=== PATIENT | female | born 1955 | race Caucasian/White ===

== ENCOUNTER 2016-12-22 14:49 | Emergency (ER) | payer OTHER, MEDICARE ==
--- NOTE | ~2016-12-22 | EKG ---
PATIENT: SHANNAN HAAS UNIT #: [id number] Ventricular Rate: 79 BPM Atrial Rate: 79 BPM P-R Interval: 184 ms QRS Duration: 86 ms Q-T Interval: 370 ms QTC Calculation(Bezet): 424 ms P [place]: 33 degrees Calculated R [place]: 4 degrees Calculated T [place]: 60 degrees Diagnosis Line: Normal sinus rhythm Diagnosis Line: Normal ECG Diagnosis Line: No previous ECGs available Diagnosis Line: Confirmed by NICK MATHEW MD ([id number]) on 12/23/2016 Diagnosis Line: 8:05:14 PM INTERPRETING MD: QUINCY TRUJILLO
--- NOTE | ~2016-12-22 | CR72 ---
[facility] A Service of [facility] RADIOLOGY TEXT RESULTS PATIENT: SHANNAN HAAS LOCATION: SED : 51 UNIT #: [id number] AGE: [address]: Kamala Braun MD SEX: F ORDER DR: [id number] [address] [address] [id number] MR#: [id number] Acc #: [id number] NAME: SHANNAN HAAS : 1955 SEX: F STUDY DATE/TIME: 12/22/2016 15:37 UNIT: SED ROOM: STUDY DESCRIPTION: CR Chest Single View Portable Attending Physician: Kamala Braun M.D. Referring Physician: Kamala Braun M.D. Ordering Physician: Kamala Braun M.D. MEDICAL IMAGING REPORT This report is preliminary unless electronic signature is present. EXAM Portable chest HISTORY Shortness of breath for the past 4-5 days. Previous history breast cancer. TECHNIQUE Single view chest was obtained. FINDINGS Bony structures are unremarkable. Vascular clips are seen in the left axilla from previous surgery. The lungs are abnormal. Diffuse bilateral interstitial infiltrates are seen. The infiltrates are most prominent in the left mid-lung field. The appearance is nonspecific. This could reflect chronic interstitial lung disease, acute interstitial pneumonia or pneumonitis, or lymphangitic carcinomatosis in a patient with a history of breast cancer. No pleural fluid is seen and vascular markings are normal. IMPRESSION Nonspecific interstitial infiltrates are seen bilaterally, most prominent in the left mid-lung field. No previous imaging studies are available for comparison. See above differential diagnosis. Dictated by... Bony Ford M.D. THIS IS AN ELECTRONICALLY VERIFIED REPORT Bony Ford M.D. at 12/23/2016 10:03 AM RLF/pcl [facility] A Service of [facility] RADIOLOGY TEXT RESULTS PATIENT: SHANNAN HAAS LOCATION: SED : 53 UNIT #: [id number] AGE: [address]: Kamala Braun MD SEX: F ORDER DR: TD: 12/22/2016 22:53 JOB #: [id number] MEDICAL IMAGING REPORT Page 1 of 1
[2016-12-22] MEDS ORDERED: LISINOPRIL (14:57)
[2016-12-22] MEDS ORDERED: METFORMIN (14:57)
[2016-12-22] MEDS ORDERED: NORVASC (14:57)
[2016-12-22] MEDS ORDERED: PROZAC (14:57)
[2016-12-22] MEDS ORDERED: GLYNASE (14:57)
[2016-12-22 15:33] LABS: BASOPHIL# 0.1 X10e3 (0-0.3); BASOPHIL% 0.7 % (0-2.5); EOSINOPHIL# 0.2 X10e3 (0-0.7); EOSINOPHIL% 2.5 % (0.0-7.0); HEMOGLOBIN 14.9 gm/dL (12.0-16.0); LYMPHOCYTE# 2.1 X10e3 (1.0-3.5); LYMPHOCYTE% 21.7 % (17.0-45.0); MEAN CELL VOLUME 88.9 FL (83-96); MEAN CORPUSCULAR HEMOGLOBIN 30.7 PG (28-34); MEAN CORPUSCULAR HGB CONC 34.5 g/dL (30-36); MEAN PLATELET VOLUME 6.8 FL (6.5-11.5); MONOCYTE# 0.6 X10e3 (0-1.0); NEUTROPHIL# 6.8 X10e3 (1.5-7.1); NEUTROPHIL% 69.1 % (40-75); PLATELET COUNT 279 X10e3 (140-420); RED BLOOD COUNT 4.84 X10e (3.90-5.30); RED CELL DISTRIBUTION WIDTH 13.7 % (11.0-15.5); WHITE BLOOD COUNT 9.8 X10e3 (4.0-10.5)
[2016-12-22 15:34] LABS: POC - CKMB 1.2 ng/mL (0.0-7.9); POC - TROPONIN <0.05 ng/mL (<=0.05)
[2016-12-22 15:38] LABS: DIFF IND NO
[2016-12-22 15:42] LABS: PROTHROMBIN TIME (PATIENT) 11.4 SECONDS (9.5-12.4)
[2016-12-22 15:49] LABS: PARTIAL THROMBOPLASTIN TIME 27.7 SECONDS (25.6-38.1)
[2016-12-22 16:06] LABS: BILIRUBIN, DIRECT 0.2 mg/dL (0.0-0.2); BILIRUBIN,INDIRECT 0.5 mg/dL (0.0-0.9); BILIRUBIN,TOTAL 0.7 mg/dL (0.2-2.0); CALCIUM SERUM 9.6 mg/dL (8.4-10.2); CREATININE SERUM 0.6 mg/dL (0.6-1.4); MAGNESIUM 1.3 mg/dL (1.6-3.0); POTASSIUM 3.9 mmol/L (3.5-5.1); PROTEIN TOTAL SERUM 7.5 g/dL (6.0-8.3)
[2016-12-22 17:10] LABS: POC - CKMB <1.0 ng/mL (0.0-7.9)
[2016-12-22 17:11] LABS: POC - TROPONIN <0.05 ng/mL (<=0.05)
== END 2016-12-22 18:40 ==
LOC: SED 14:49
PROVIDERS: Student in an Organized Health Care Education/Training Program
DX: E86.0 Dehydration (principal); I10 Essential (primary) hypertension; Z91.19 Patient's noncompliance with other medical treatment and regimen
CPT/HCPCS: 36415; 71010; 80048; 80076; 82553; 83735; 83880; 84484; 85025; 85610; 85730; 93005; 94640; 96374; 96375; 99285; J0456; J0696; J2920; J3475